=== PATIENT | female | born 1985 | race Caucasian/White ===

== ENCOUNTER 2016-11-18 19:20 | Emergency (ER) | payer OTHER ==
[2016-11-18 21:24] LABS: BASOPHIL % 0.5 % (0-2); PLATELET COUNT 274 x10^3mcL (130-400); RED CELL DISTRIBUTION WIDTH 13.9 % (11.5-14.5)
[2016-11-18 21:42] LABS: microscopic required? YES; urine erythrocyte 3+ (NEGATIVE)
[2016-11-18 23:38] VITALS: BP 128/75
== END 2016-11-18 23:00 | disposition home or self-care (01) ==
LOC: ED 19:20
PROVIDERS: Emergency Medicine
DX: O20.0 Threatened abortion (principal); Z3A.09 9 weeks gestation of pregnancy
CPT/HCPCS: 36415